=== PATIENT | female | born 1970 | race African-American/Black ===

== ENCOUNTER 2019-02-20 21:13 | Emergency (ER) | payer SELFPAY ==
[~2019-02-20] VITALS: Ht 152.4 cm; Wt 116.0 kg
[2019-02-21 04:00] VITALS: BP 156/89
== END 2019-02-21 04:30 | disposition home or self-care (01) ==
LOC: ER 21:13
DX: R60.0 Localized edema (principal); I10 Essential (primary) hypertension; F17.200 Nicotine dependence, unspecified, uncomplicated; Z98.890 Other specified postprocedural states
CPT/HCPCS: 99283; Z7610